=== PATIENT | male | born 1975 | race Caucasian/White ===

== ENCOUNTER 2017-03-30 13:51 | Emergency (ER) | payer SELFPAY ==
[2017-03-30] MEDS ORDERED: Sodium Chloride 0.9% 2.5 ML Syringe FLUSH PRN (13:52)
[2017-03-30] MEDS ORDERED: Sodium Chloride 0.9% 10 ML Syringe FLUSH PRN (13:52)
[2017-03-30] MEDS ORDERED: Aspirin 81 MG Tab.Chew PO ONE (13:54)
[2017-03-30] MEDS ORDERED: Nitroglycerin 0.4 MG Tab.SL SL PRN (13:54)
--- NOTE | 2017-03-30 14:14 | EDM.PDOC ---
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 Patient works in oil [employer] and continue to work with the pain. His pain got worse approximately 5/10. He denied any shortness of breath, sweating when it first started, syncope nausea or vomiting. He did get a little lightheaded in the truck when it first came on but that passed has not returned. He denied any numbness or tingling with his pain. On arrival here patient's pain is rated 1/10. Review of systems: As per history of present illness and below otherwise all systems reviewed and negative. Past medical history: As per history of present illness and as reviewed below otherwise noncontributory. Surgical history: As per history of present illness and as reviewed below otherwise noncontributory. Social history: No reported history of drug or alcohol abuse. Family history: As per history of present illness and as reviewed below otherwise noncontributory. Physical exam: General: Well developed, well nourished in NAD HEENT: Atraumatic, normocephalic, pupils reactive, negative for conjunctival pallor or scleral icterus, mucous membranes moist, throat clear, neck supple, nontender, trachea midline. Lungs: Clear to auscultation, breath sounds equal bilaterally, chest nontender. Heart: S1S2, regular, negative for clicks, rubs, or JVD. Abdomen: Soft, nondistended, nontender. Negative for masses or hepatosplenomegaly. Negative for costovertebral tenderness. Pelvis: Stable nontender. Genitourinary: Deferred. Rectal: Deferred. Extremities: Atraumatic, negative for cords or calf pain. Neurovascular unremarkable. Neuro: Awake, alert, oriented. Cranial nerves II through XII unremarkable. Cerebellum unremarkable. Motor and sensory unremarkable throughout. Exam nonfocal. Diagnostics: []EKG, labs and chest x-ray are normal Therapeutics: []Aspirin and nitroglycerin given with improvement Impression: []Chest pain unknown etiology Plan: []Dr. Anderson was consulted for admission however patient refused. Dr. Villegas also evaluate the patient in the ED and after a second troponin was done that was negative and no return of chest pain while in the ED, patient is being discharged with a prescription for nitroglycerin and told to take an aspirin a day and he will see Dr. Villegas in his clinic tomorrow. Definitive disposition and diagnosis as appropriate pending reevaluation and review of above. Chest Pain Score (Numeric/FACES): 2 - Related Data Allergies Allergy/AdvReac Type Severity Reaction Status Date / Time No Known Allergies Allergy Verified 03/30/17 13:59 Home Meds: Home Meds Nitroglycerin 0.4 mg SL ASDIRECTED PRN #1 bottle 03/30/17 [Rx] Past Medical History - Past Health History Medical/Surgical History: Denies Medical/Surgical History Social & Family History - Tobacco Use Years of Tobacco use: 20 - Alcohol Use Days Per Week of Alcohol Use: 1 Number of Drinks Per Day: 2 Total Drinks Per Week: 2 - Recreational Drug Use Recreational Drug Use: No ED ROS GENERAL - Review of Systems Review Of Systems: See Below (See history of present illness) ED EXAM, GENERAL - Physical Exam Exam: See Below (See history of present illness) Course - Vital Signs Last Recorded V/S: Last Vital Signs Temp 99.1 F 03/30/17 13:59 Pulse 82 03/30/17 13:59 Resp 18 03/30/17 13:59 BP 113/54 L 03/30/17 14:08 Pulse Ox 98 03/30/17 14:22 - Orders/Labs/Meds Orders: Active Orders 24 hr Category Date Time Status Cardiac Monitoring [RC] . DIRECTED Care 03/30/17 13:52 Active EKG Documentation Completion [RC] STAT Care 03/30/17 13:52 Active Nitroglycerin [Nitrostat] Med 03/30/17 13:54 Active 0.4 mg SL Q5M PRN Sodium Chloride 0.9% [Normal Saline] 1,000 ml Med 03/30/17 14:15 Active IV ASDIRECTED Sodium Chloride 0.9% [Saline Flush] Med 03/30/17 13:52 Active 10 ml FLUSH ASDIRECTED PRN Sodium Chloride 0.9% [Saline Flush] Med 03/30/17 13:52 Active 2.5 ml FLUSH ASDIRECTED PRN Saline Lock Insert [OM.PC] Stat Oth 03/30/17 13:52 Ordered Medication Orders Sodium Chloride (Normal Saline) 1,000 mls @ 999 mls/hr IV ASDIRECTED DEVORAH Last Admin: 03/30/17 14:11 Dose: 999 mls/hr Nitroglycerin (Nitrostat) 0.4 mg SL Q5M PRN PRN Reason: Chest Pain Last Admin: 03/30/17 14:08 Dose: 0.4 mg Sodium Chloride (Saline Flush) 10 ml FLUSH ASDIRECTED PRN PRN Reason: Keep Vein Open Sodium Chloride (Saline Flush) 2.5 ml FLUSH ASDIRECTED PRN PRN Reason: Keep Vein Open Labs: Laboratory Tests 03/30/17 03/30/17 03/30/17 Range/Units 13:55 13:55 15:36 WBC 10.59 (4.0-11.0) K/uL RBC 4.54 (4.50-5.90) M/uL Hgb 14.0 (13.0-17.0) g/dL Hct 41.9 (38.0-50.0) % MCV 92.3 (80.0-98.0) fL MCH 30.8 (27.0-32.0) pg MCHC 33.4 (31.0-37.0) g/dL RDW Std Deviation 46.2 (28.0-62.0) fl RDW Coeff of [place] 14 (11.0-15.0) % Plt Count 298 (150-400) K/uL MPV 9.20 (7.40-12.00) fL Neut % (Auto) 57.0 (48.0-80.0) % Lymph % (Auto) 33.2 (16.0-40.0) % [place] % (Auto) 7.6 (0.0-15.0) % Eos % (Auto) 1.7 (0.0-7.0) % Baso % (Auto) 0.5 (0.0-1.5) % Neut # (Auto) 6.0 H (1.4-5.7) K/uL Lymph # (Auto) 3.5 H (0.6-2.4) K/uL [place] # (Auto) 0.8 (0.0-0.8) K/uL Eos # (Auto) 0.2 (0.0-0.7) K/uL Baso # (Auto) 0.1 (0.0-0.1) K/uL Nucleated RBC % 0.0 /100WBC Nucleated RBCs # 0 K/uL Sodium 137 (136-146) mmol/L Potassium 3.8 (3.5-5.1) mmol/L Chloride 106 (98-110) mmol/L Carbon Dioxide 23 (21-31) mmol/L BUN 13 (6.0-23.0) mg/dL Creatinine 1.0 (0.6-1.5) mg/dL Est Cr Clr Drug Dosing TNP Estimated GFR (MDRD) > 60.0 ml/min Glucose 118 H (60-110) mg/dL Calcium 9.8 (8.8-10.8) mg/dL Total Bilirubin 0.6 (0.1-1.5) mg/dL AST 22 (5-40) IU/L ALT 21 (8-54) IU/L Alkaline Phosphatase 89 (40-150) Troponin I < 0.10 < 0.10 (0.0-0.29) NG/ML Total Protein 7.4 (6.0-8.0) g/dL Albumin 4.4 (3.5-5.0) g/dL Globulin 3.0 (2.0-3.5) g/dL Albumin/Globulin Ratio 1.5 (1.3-2.8) Meds: Medications Generic Name Dose Route Start Last Admin Trade Name Freq PRN Reason Stop Dose Admin Sodium Chloride 1,000 mls @ 999 mls/hr 03/30/17 14:15 03/30/17 14:11 Normal Saline IV 999 mls/hr ASDIRECTED DEVORAH Administration Nitroglycerin 0.4 mg 03/30/17 13:54 03/30/17 14:08 Nitrostat SL 0.4 mg Q5M PRN Administration Chest Pain Sodium Chloride 10 ml 03/30/17 13:52 Saline Flush FLUSH ASDIRECTED PRN Keep Vein Open Sodium Chloride 2.5 ml 03/30/17 13:52 Saline Flush FLUSH ASDIRECTED PRN Keep Vein Open Discontinued Medications Generic Name Dose Route Start Last Admin Trade Name Freq PRN Reason Stop Dose Admin Aspirin 324 mg 03/30/17 13:54 03/30/17 14:06 Aspirin PO 03/30/17 13:55 324 mg ONETIME ONE Administration Departure - Departure Time of Disposition: 15:44 Disposition: Home, Self-Care 01 Condition: Good Clinical Impression: Chest pain Qualifiers: Chest pain type: unspecified Qualified Code(s): R07.9 - Chest pain, unspecified Prescriptions: Nitroglycerin 0.4 mg SL ASDIRECTED PRN #1 bottle PRN Reason: Chest Pain Referrals: PCP,None [Primary Care Provider] - Arben Villegas MD [Resident] - 1 Day (Tomorrow) Forms: ED Department Discharge Additional Instructions: The following information is given to patients seen in the emergency department who are being discharged to home. This information is to outline your options for follow-up care. We provide all patients seen in our emergency department with a follow-up referral. The need for follow-up, as well as the timing and circumstances, are variable depending upon the specifics of your emergency department visit. If you don't have a primary care physician on staff, we will provide you with a referral. We always advise you to contact your personal physician following an emergency department visit to inform them of the circumstance of the visit and for follow-up with them and/or the need for any referrals to a consulting specialist. The emergency department will also refer you to a specialist when appropriate. This referral assures that you have the opportunity for follow-up care with a specialist. All of these measure are taken in an effort to provide you with optimal care, which includes your follow-up. Under all circumstances we always encourage you to contact your private physician who remains a resource for coordinating your care. When calling for follow-up care, please make the office aware that this follow-up is from your recent emergency room visit. If for any reason you are refused follow-up, please contact the [facility] Emergency Department at and asked to speak to the emergency department charge nurse. [facility] [address] [place] [id number] - My Orders Last 24 Hours: My Active Orders 03/30/17 14:15 Sodium Chloride 0.9% [Normal Saline] 1,000 ml IV ASDIRECTED - Assessment/Plan Last 24 Hours: My Active Orders 03/30/17 14:15 Sodium Chloride 0.9% [Normal Saline] 1,000 ml IV ASDIRECTED
[2017-03-30] MEDS ORDERED: Sodium Chloride 0.9% 1,000 ML IV SCH (14:15)
--- NOTE | 2017-03-30 14:30 | CR ---
EXAMINATION: Portable chest radiograph. HISTORY: Chest pain. FINDINGS: The trachea is midline. The cardiomediastinal silhouette is within normal limits. No pulmonary infilt rates, effusions or pneumothorax. Osseous structures appear unremarkable. IMPRESSION: No acute cardiopulmonary process.
[2017-03-30 14:41] LABS: CHLORIDE,CL 106 mmol/L (98-110); SODIUM,NA 137 mmol/L (136-146)
== END 2017-03-30 16:39 | disposition home or self-care (01) ==
LOC: MW.ED 13:51
DX: R07.9 Chest pain, unspecified (principal)
CPT/HCPCS: 71045; 80053; 84484; 85025; 96360; 99285; A9270; J7040; 99284

== ENCOUNTER 2022-02-05 00:21 | Emergency (ER) | payer BC ==
[2022-02-05] MEDS ORDERED: Penicillin V Potassium 500 MG Tab PO STA (00:54)
== END 2022-02-05 01:03 | disposition home or self-care (01) ==
LOC: MW.ED 00:21
DX: K08.89 Other specified disorders of teeth and supporting structures (principal)
CPT/HCPCS: 99282; A9270

== ENCOUNTER 2023-07-06 19:20 | Emergency (ER) | payer BC ==
[2023-07-06] MEDS: Amoxicillin/Clavulanate K 875-125 MG Tab PO ONE (21:39)
[2023-07-06] MEDS: Lidocaine 2% Viscous Solution 15 ML UD PO ONE (21:39)
[2023-07-06] MEDS: Benzocaine 20% Topical Spray UD MUCMEM ONE (21:39)
== END 2023-07-06 21:44 | disposition home or self-care (01) ==
LOC: MW.ED 19:20
DX: K04.7 Periapical abscess without sinus (principal); F17.210 Nicotine dependence, cigarettes, uncomplicated; Z75.8 Other problems related to medical facilities and other health care; Z79.899 Other long term (current) drug therapy
CPT/HCPCS: 99282; A9270; 99283